=== PATIENT | male | born 1945 | race Caucasian/White ===

== ENCOUNTER 2022-10-19 07:11 | Day surgery (SDC) | payer OTHER ==
[2022-10-14 15:02] LABS: MEAN CORPUSCULAR HGB CONC 33.2 g/dL (33.0-36.5); RED CELL DISTRIBUTION WIDTH 13.7 % (11.5-14.5)
[2022-10-14 15:04] LABS: MEAN CORPUSCULAR HEMOGLOBIN 31.2 PG (27.0-31.0); MEAN CORPUSCULAR VOLUME 93.7 FL (78-98); PRE OP HEMATOCRIT 41.4 % (42.0-52.0); PRE OP HEMOGLOBIN 13.8 g/dL (14.0-17.9); PRE OP PLATELET COUNT 193 X10'3 (140-440); RED BLOOD COUNT 4.42 X10'6 (4.70-6.10)
[2022-10-14 15:06] LABS: ALBUMIN 4.1 G/DL (3.4-5.0); ALBUMIN/GLOBULIN RATIO 1.2 (1.1-1.5); ALKALINE PHOSPHATASE 52 IU/L (46-116); BLOOD UREA NITROGEN 25 MG/DL (7-18); BUN/CREATININE RATIO 22.5 (10.0-20.0); CALCIUM 9.6 MG/DL (8.5-10.1); CHLORIDE 104 MMOL/L (99-107); CREATININE 1.11 MG/DL (0.60-1.10); PRE OP ALT 19 U/L (30-65); PRE OP ANION GAP 9 (8-16); PRE OP AST 18 U/L (10-37); PRE OP BILIRUB, TOTAL 0.5 MG/DL (0.0-1.0); PRE OP GLUCOSE 108 MG/DL (70-104); PRE OP POTASSIUM 4.1 MMOL/L (3.4-5.1); PRE OP SODIUM 139 MMOL/L (135-145); TOTAL CARBON DIOXIDE 25.9 MMOL/L (24-32); TOTAL PROTEIN 7.6 G/DL (6.4-8.2); eGFR 64 ML/MIN
[2022-10-14 15:44] LABS: PLATELET ESTIMATE NORMAL; TOTAL CELLS COUNTED 100
[2022-10-14 15:47] LABS: BURR CELLS FEW; ELLIPTOCYTES FEW; SCHISTOCYTES FEW
[~2022-10-19] VITALS: Ht 175.3 cm; Wt 78.6 kg
[2022-10-19] VITALS (13 sets, daily range): BP systolic 89–155; BP diastolic 51–85
[~2022-10-19 07:11] MED LIST: ALBU6.7H14 INH; AMLO-314 PO; CETI10TA19 PO; DILT120C10 PO; GUAI400T92 PO; HYDR-4069 PO; HYDR12.55 PO; LISI40TA13 PO; MOME13HF11 INH; cefazolin 2gm/D5W 100mL 100 ML IV ONE; famotidine 20mg tablet PO ONE; olodaterol INH; ringers solution, lacted 1,000 ML IV SCH
[2022-10-19] MEDS ORDERED: RIVA20TA PO (07:55)
[2022-10-19] MEDS ORDERED: morphine 4 MG/ML inj SYRINge IV PRN (08:35)
[2022-10-19] MEDS ORDERED: labetalol 20mg/4ml (5mg/ml) syringe IV PRN (08:35)
[2022-10-19] MEDS ORDERED: ringers solution, lacted 1,000 ML IV SCH (08:35)
[2022-10-19] MEDS ORDERED: morphine 2 MG/ML inj. syringe IV PRN (08:35)
[2022-10-19] MEDS ORDERED: fentaNYL/PF 50MCG/1 ML 2ML syringe IV PRN ×2 (08:35)
[2022-10-19] MEDS ORDERED: ondansetron/PF 4mg/2ml inj IV PRN (08:35)
[2022-10-19] MEDS ORDERED: hydrALAZINE 20mg/ml inj. IV PRN (08:35)
[2022-10-19] MEDS ORDERED: bacitracin 15gm ointment TP ONE (09:09)
[2022-10-19] MEDS ORDERED: BUPIVAcaine/PF 5 mg/ml 10ml ONE (09:09)
[2022-10-19] MEDS ORDERED: sevoflurane 250ml liquid IH ONE (09:23)
[2022-10-19] MEDS ORDERED: dexamethasone sod phosphate 10mg/ml inj ONE (09:23)
[2022-10-19] MEDS ORDERED: fentaNYL/PF 50MCG/1 ML 2ML syringe ONE (09:26)
[2022-10-19] MEDS ORDERED: midazolam 1 mg/ML 2ml injection ONE (09:28)
[2022-10-19] MEDS ORDERED: LIDOcaine 2% (20mg/ml) 5ml vial ONE (09:40)
[2022-10-19] MEDS ORDERED: propofol inj 20 ML IV ONE (09:40)
[2022-10-19] MEDS ORDERED: ondansetron/PF 4mg/2ml inj ONE (09:42)
[2022-10-19] MEDS ORDERED: acetaminophen 1,000mg/100ml IV 100 ML IV ONE (09:42)
--- NOTE | 2022-10-19 10:25 | NUR ---
Received from OR via [facility], accompanied by Anesthesiologist DR CHEN and report given by Anesthesiologist. PT PLACED ON BEDSIDE MONITOR, VSS. PT IS IN A-FIB WITH RATE IN 50'S. PT RECEIVING 10L 02 TO MASK AND TOLERATING WELL WITH O2 SAT >95%. PT HAS 20G PIV TO LEFT HAND WITH LR INFUSING ORDERED. PT HAS DRSG TO LEFT GROIN THAT IS CDI. PT IS RESTING COMFORTABLY WITH NO S/S OF DISTRESS/DISCOMFORT NOTED AT THIS TIME. WILL CONTINUE TO ASSESS.
--- NOTE | 2022-10-19 12:30 | NUR ---
PT, HR HAS BEEN 40'S WHILE AT REST AND 50'S TO 60'S WITH ACTIVITY. PT IS A-SYMPTOMATIC WITH STABLE BP. PT DENIES DIZZINESS WITH LAYING OR STANDING. PT'S HR WAS 50'S PRE-OP. ANESTHESIA MADE AWARE AND IS OK TO PROCEED WITH DISCHARGE. PT EDUCATED TO MONITOR HR AND VISIT ER IF HE BECOMES SYMPTOMATIC.
--- NOTE | 2022-10-19 12:55 | NUR ---
DC HOME: ALL DISCHARGE CRITERIA HAS BEEN MET. VSS, PAIN AT A TOLERABLE LEVEL, VOIDING AND ABLE TO SAFELY AMBULATE AND TRANSFER SELF. PT VOIDED 450ML. IV TAKEN OUT WITHOUT ANY COMPLICATIONS. ALL DISCHARGE INSTRUCTIONS COVERED WITH PATIENT AND ALL QUESTIONS ANSWERED. PATIENT TAKEN OUT VIA WHEELCHAIR TO PERSONAL VEHICLE WHERE ADRIEL DROVE PATIENT HOME
== END 2022-10-19 12:39 | disposition home or self-care (01) ==
LOC: PAS 07:11
PROVIDERS: ATTEND Surgery
DX: K40.90 Unilateral inguinal hernia, without obstruction or gangrene, not specified as recurrent (principal); D17.6 Benign lipomatous neoplasm of spermatic cord; J44.9 Chronic obstructive pulmonary disease, unspecified; I48.19 Other persistent atrial fibrillation; I10 Essential (primary) hypertension; Z87.891 Personal history of nicotine dependence; Z79.899 Other long term (current) drug therapy; Z79.01 Long term (current) use of anticoagulants
CPT/HCPCS: 36415; 49505; 80053; 82948; 85025; C1781; J0131; J0690; J1100; J2250; J2405; J2704; J3010; J3490; J7030; J7120; Z7506; Z7512; 85007; A4215; A4618; A6449; A7000